=== PATIENT | female | born 1940 | race Caucasian/White ===

== ENCOUNTER 2016-10-20 13:25 | Outpatient (CLI) | payer MEDICARE, OTHER | END 2016-10-20 13:26 | disposition home or self-care (01) | DX: R51 Headache (principal); R42 Dizziness and giddiness; R11.0 Nausea; E11.9 Type 2 diabetes mellitus without complications ==

== ENCOUNTER 2018-06-01 11:18 | Outpatient (CLI) | payer MEDICARE, OTHER ==
--- NOTE | 2018-06-02 11:54 | Mammography Report ---
Reason: SCREENING MAMMO Procedure Date: 06/01/2018 Accession Number: [id number] / [id number] Procedure: ELISSA - Screening Mammo w/Anibal CPT Code: FULL RESULT: EXAM: Screening Mammo w/Anibal DATE: 06/01/2018 11:51 AM CLINICAL HISTORY: Routine screening. Nulliparous patient. TECHNIQUE: Bilateral CC and MLO views were obtained. COMPARISON: 04/26/2016, 08/07/2012, 02/19/2011 and 06/20/2008 FINDINGS: Scattered fibroglandular densities are present. There is no significant interval change. No suspicious masses, clustered microcalcifications, or regions of architectural distortion are identified. Scattered benign calcifications are again noted. IMPRESSION: Benign findings RECOMMENDATION: Routine annual screening unless otherwise clinically indicated. BIRADS CATEGORY 2: Benign findings STANDARD QUALIFYING STATEMENTS: 1. This examination was not reviewed with the aid of Computer-Aided Detection (CAD). 2. A negative or benign imaging report should not delay biopsy if clinically suspicious findings are present. Consider surgical consultation if warrented. More than 5% of cancers are not identified by imaging. 3. Dense breasts may obscure an underlying neoplasm. 4. This examination was reviewed with the aid of 3D breast imaging (tomosynthesis).
== END 2018-06-01 11:19 | disposition home or self-care (01) ==
LOC: DI 11:18
PROVIDERS: ATTEND Internal Medicine
DX: Z12.31 Encounter for screening mammogram for malignant neoplasm of breast (principal)
CPT/HCPCS: 77063; 77067

== ENCOUNTER 2019-08-09 13:16 | Outpatient (CLI) | payer MEDICARE, OTHER ==
--- NOTE | 2019-08-10 11:36 | Mammography Report ---
Reason: ROUTINE MAMMO Procedure Date: 08/09/2019 Accession Number: [id number] / [id number] Procedure: ELISSA - Screening Mammo w/Anibal CPT Code: Final Report FULL RESULT: EXAM: Screening Mammo w/Anibal DATE: 08/09/2019 2:03 PM CLINICAL HISTORY: Screening encounter. TECHNIQUE: (B) - Bilateral CC and MLO views were obtained. COMPARISON: 06/01/2018 through 02/19/2011. PARENCHYMAL PATTERN: (A) - The breast(s) demonstrate(s) scattered fibroglandular densities. FINDINGS: There is an increasing asymmetry best seen on the left CC projection 7.6 cm from the nipple in the medial breast which localizes to the inner lower quadrant on cc 3-D image #9 potentially correlating 2 the left MLO 3-D image 31. Additional spot imaging and potentially ultrasound are recommended for clarification. There are no suspicious masses, calcifications, or areas of distortion in the right breast. IMPRESSION: Incomplete examination. BI-RADS category 0. RECOMMENDATION: (ADDMU) - Additional views using both Mammography and Ultrasound recommended. Left breast lower inner quadrant. BI-RADS CATEGORY: (0) - Incomplete Examination - need additional evaluation. STANDARD QUALIFYING STATEMENTS: 1. This examination was not reviewed with the aid of Computer-Aided Detection (CAD). 2. A negative or benign imaging report should not preclude biopsy if clinically suspicious findings are present. 3. Dense breasts may obscure an underlying neoplasm. 4. This examination was reviewed with the aid of 3D breast imaging (tomosynthesis).
== END 2019-08-09 13:17 | disposition home or self-care (01) ==
LOC: DI 13:16
PROVIDERS: ATTEND Internal Medicine
DX: Z12.31 Encounter for screening mammogram for malignant neoplasm of breast (principal); R92.8 Other abnormal and inconclusive findings on diagnostic imaging of breast
CPT/HCPCS: 77063; 77067

== ENCOUNTER 2019-09-05 08:17 | Outpatient (CLI) | payer MEDICARE, OTHER ==
--- NOTE | 2019-09-05 13:23 | Mammography Report ---
Reason: ABN MAMMO - SPEC VIEWS LT Procedure Date: 09/05/2019 Accession Number: [id number] / [id number] Procedure: ELISSA - Diag Special Views Dig LT CPT Code: Final Report FULL RESULT: EXAM: Diag Special Views Dig LT DATE: 09/05/2019 9:10 AM CLINICAL HISTORY: Diagnostic examination. The patient is recalled from screening for increasing left breast asymmetry. TECHNIQUE: (L) - Left left spot CC, left spot MLO and left LM images are obtained. Focused left breast ultrasound is performed. COMPARISON: 08/09/2019 through 06/20/2008. PARENCHYMAL PATTERN: (A) - The breast(s) demonstrate(s) scattered fibroglandular densities. FINDINGS: The focal asymmetry in question partially dissipates with spot views and 3-D mammographic images demonstrate no convincing underlying mass 7:00 approximately 8 cm from the nipple. Focused left breast ultrasound in the same location demonstrates normal breast tissue with no mass or architectural distortion identified. There are no suspicious masses, calcifications, or areas of distortion. IMPRESSION: Benign findings. BI-RADS category 2. RECOMMENDATION: (ANNUAL) - Recommend routine annual screening mammography. BI-RADS CATEGORY: (2) - Benign Findings. STANDARD QUALIFYING STATEMENTS: 1. This examination was not reviewed with the aid of Computer-Aided Detection (CAD). 2. A negative or benign imaging report should not preclude biopsy if clinically suspicious findings are present. 3. Dense breasts may obscure an underlying neoplasm. 4. This examination was reviewed with the aid of 3D breast imaging (tomosynthesis).
== END 2019-09-05 08:18 | disposition home or self-care (01) ==
LOC: DI 08:17
PROVIDERS: ATTEND Internal Medicine
DX: R92.8 Other abnormal and inconclusive findings on diagnostic imaging of breast (principal); N64.89 Other specified disorders of breast
CPT/HCPCS: 76642

== ENCOUNTER 2021-04-09 08:00 | Outpatient (CLI) | payer MEDICARE, OTHER | END 2021-04-09 23:59 | LOC: LAB.N 08:00 | PROVIDERS: ATTEND Family Medicine | DX: K52.9 Noninfective gastroenteritis and colitis, unspecified (principal); Z20.822 Contact with and (suspected) exposure to COVID-19 ==

== ENCOUNTER 2021-04-10 10:46 | Emergency (ER) | payer MEDICARE, OTHER ==
--- NOTE | 2021-04-10 11:03 | ED Physician Documentation ---
PD HPI CHEST PAIN - Stated complaint Stated Complaint: CHEST PX - History obtained from History obtained from: Patient - History of Present Illness Timing - onset: Enter time (0200), Last night Timing - onset during: Rest Timing - duration: Hours Timing - details: Abrupt onset, Still present Quality: Pressure, Tightness Location: Left chest Radiation: Neck Improved by: Other (peptobismol) Worsened by: No: Exertion, Inspiration, Eating, Movement, Palpation, Position Associated symptoms: No: Shortness of air, Diaphoresis, Nausea, Vomiting, Feeling faint / dizzy, General Weakness, Palpitations, Cough Similar symptoms before: No diagnosis Recently seen: Clinic - Additional information Additional information: 81-year-old female history of pancreatitis has developed chest pain radiating into her neck last night at 2:00 in the morning. She has had similar episodes not as bad over the years. She states this usually happens about 2:00 in the morning and last till about 4:00 in the morning. Last night she was able to take some Pepto-Bismol which help with her symptoms. She does not take medications for her stomach except for pancreatic enzymes. Review of Systems Constitutional: denies: Fever Eyes: denies: Decreased vision Ears: denies: Ear pain Nose: reports: Rhinorrhea / runny nose, Congestion Throat: denies: Sore throat Cardiac: reports: Chest pain / pressure. denies: Palpitations Respiratory: denies: Dyspnea, Cough GI: reports: Abdominal Pain, Nausea. 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 : None HEENT: None Psych: None Musculoskeletal: None Derm: None - Past Surgical History Past Surgical History: Yes General: Cholecystectomy /RAILWAY PATROL OFFICER: Dilation and currettage HEENT: Tonsil/Adenoidectomy - Present Medications Home Medications: Ambulatory Orders Medication Instructions Recorded Confirmed B12/Levomefolate Calcium/B-6 5,000 mg PO AC 03/15/17 12/16/20 [Foltx Tablet] Biotin 10,000 mcg PO AC 03/15/17 12/16/20 Dale/Mg/Zinc 1,500 mg PO AC 03/15/17 12/16/20 Cholecalciferol (Vitamin D3) 1,000 unit PO AC 03/15/17 12/16/20 [Vitamin D3] Folic Acid 800 mcg PO AC 03/15/17 12/16/20 Glucosa Chaudhary 2Kcl/Chondroitin Chaudhary 1,500 mg PO AC 03/15/17 12/16/20 [Glucosamine-Chondroitin Tab] Gtf Chromium 200 mg pe PO AC 03/15/17 12/16/20 Lactobacillus Acidophilus 1 tab ORAL DAILY 03/15/17 12/16/20 [Probiotic Acidophilus] Vernal-3/Dha/Epa/Fish Oil [Vernal 3 1,000 mg PO AC 03/15/17 12/16/20 500 Softgel] Makinen Lecithin 1,200 mg PO AC 03/15/17 12/16/20 Super Bio C Buffered 1,000 mg PO AC 03/15/17 12/16/20 L Glutamine 500 mg ORAL DAILY 03/16/17 12/16/20 Spirulina 1,800 mg PO DAILY 03/16/17 12/16/20 Bioallers 2 drops PO DAILY PRN 12/11/19 12/16/20 Cinnulin 100 mg PO DAILY 12/11/19 12/16/20 Ubidecarenone [Co Q-10] 100 mg PO DAILY 12/11/19 12/16/20 - Allergies Allergies/Adverse Reactions: Allergies Allergy/AdvReac Type Severity Reaction Status Date / Time Iodinated Contrast Media Allergy Severe Diaphoresis Verified 04/10/21 11:11 aspirin AdvReac Intermediate Rash Verified 04/10/21 11:11 codeine AdvReac Intermediate Dizziness Verified 04/10/21 11:11 - Social History Does the pt smoke?: No Smoking Status: Never smoker Does the pt drink ETOH?: Yes Does the pt have substance abuse?: No - Immunizations Immunizations are current?: No - POLST Patient has POLST: Yes PD ED PE NORMAL - Vitals Vital signs reviewed: Yes (hypertensive ) - General General: Alert and oriented X 3, No acute distress, Well developed/nourished - HEENT HEENT: Atraumatic, PERRL, EOMI - Neck Neck: Supple, no meningeal sign, No bony TTP - Cardiac Cardiac: RRR, Other (2/6 holosystolic murmer at LSB harsh, consistent with aortic stenosis) - Respiratory Respiratory: No respiratory distress, Clear bilaterally - Abdomen Abdomen: Normal bowel sounds, Soft, Non tender, Non distended, No organomegaly - Back Back: No CVA TTP, No spinal TTP - Derm Derm: Normal color, Warm and dry, No rash - Extremities Extremities: No deformity, No edema - Neuro Neuro: Alert and oriented X 3, steward/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 ) Computer interpretation: Agree with computer - Labs Labs: Laboratory Tests 04/10/21 04/10/21 04/10/21 11:37 11:37 11:37 WBC 8.9 RBC 4.33 Hgb 13.2 Hct 41.0 MCV 94.7 MCH 30.5 MCHC 32.2 RDW 12.8 Plt Count 227 MPV 10.3 Manual Slide Review Indicated Sodium 138 Potassium 4.2 Chloride 100 L Carbon Dioxide 29 Anion Gap 9.0 BUN 16 Creatinine 0.7 Estimated GFR (MDRD) 80 L Glucose 153 H Calcium 9.6 Total Bilirubin 0.7 AST 20 ALT 21 Alkaline Phosphatase 47 Troponin I High Sens 4.6 Total Protein 7.5 Albumin 3.8 Globulin 3.7 Albumin/Globulin Ratio 1.0 Lipase 32 - Rads (name of study) chest Radiology: Prelim report reviewed (Impression: No acute cardiopulmonary disease process.), EMP read indepedently, See rad report Procedures - IVC sono (time) 1120 Bedside IVC sono: IVC measures (cm) (0.91), Dehydration (est 1-2 liter deficit) PD MEDICAL DECISION MAKING - ED course Complexity details: reviewed old records, reviewed results, re-evaluated pat ient, considered differential, d/w patient ED course: 81-year-old female with a prior history of pancreatitis is having episodes, early in the morning, of abdominal pain, nausea and last night, chest pain as well. I suspect the patient has GERD and some difficulty with nighttime digestion. Today her lipase is normal and electrocardiogram and troponin are without evidence of ischemia. I do not think this patient has any component of acute coronary syndrome. Departure - Departure Disposition: 01 Home, Self Care Clinical Impression: Dehydration, Atypical chest pain GERD (gastroesophageal reflux disease) Qualifiers: Esophagitis presence: esophagitis presence not specified Qualified Code(s): K21.9 - Gastro-esophageal reflux disease without esophagitis Condition: Stable Instructions: ED Dehydration, ED GERD Follow-Up: Portia Villagran MD [Primary Care Provider] - Comments: Rivera, today in the emergency department studies of your heart were without evidence of heart attack. Your symptoms are consistent with reflux disease and the recommendation is to reduce night time eating before bed and take a medication to reduce the acid in your stomach such as Pepcid A/C or nexium. Your symptoms should khushbu as soon as you start taking one of these medications. On exam today you have a heart murmer consistent with aortic stenosis and this will require a follow up ultrasound of your heart (an echocardiogram).
[2021-04-10] MEDS ORDERED: SODIUM CHLORIDE 0.9% 1,000 ML IV STA (11:44)
[2021-04-10 11:48] LABS: BASOPHILS % (AUTO) 0.2 %; EOSINOPHILS # (AUTO) 0.1 10^3/uL (0.0-0.7); EOSINOPHILS % (AUTO) 1.1 %; HGB - HEMOGLOBIN 13.2 g/dL (12.0-16.0); LYMPHOCYTES # (AUTO) 6.1 10^3/uL (1.5-3.5); LYMPHOCYTES % (AUTO) 68.4 %; MEAN CORPUSCULAR HEMOGLOBIN 30.5 pg (27.0-31.0); MEAN CORPUSCULAR HGB CONC 32.2 g/dL (32.0-36.0); MEAN CORPUSCULAR VOLUME 94.7 fL (81.0-99.0); MEAN PLATELET VOLUME 10.3 fL (7.9-10.8); MONOCYTES # (AUTO) 0.6 10^3/uL (0.0-1.0); MONOCYTES % (AUTO) 7.1 %; NEUTROPHILS % (AUTO) 23.1 %; PLT - PLATELET COUNT 227 10^3/uL (130-450); RED BLOOD COUNT 4.33 10^6/uL (4.20-5.40); RED CELL DISTRIBUTION WIDTH 12.8 % (12.0-15.0); WHITE BLOOD COUNT 8.9 x10^3/uL (4.8-10.8)
--- NOTE | 2021-04-10 11:50 | XRAY Report ---
PROCEDURE: Chest 1 View X-Ray INDICATIONS: Chest pain TECHNIQUE: One view of the chest was acquired. COMPARISON: 02/05/2015 FINDINGS: Surgical changes and devices: None. Lungs and pleura: No pleural effusions or pneumothorax. Lungs are clear. Mediastinum: Mediastinal contours appear normal. Heart size is normal. Bones and chest wall: No suspicious bony lesions. Overlying soft tissues appear unremarkable. IMPRESSION: No acute cardiopulmonary disease process. Reviewed by: Lucy Gibson MD, PhD on 04/10/2021 11:48 AM PDT Approved by: Lucy Gibson MD, PhD on 04/10/2021 11:48 AM PDT Station ID: [id number]
[2021-04-10 11:53] LABS: SLIDE REVIEW? Indicated
[2021-04-10 12:04] LABS: ALBUMIN 3.8 g/dL (3.2-5.5); BILIRUBIN,TOTAL 0.7 mg/dL (0.2-1.0); CALCIUM 9.6 mg/dL (8.5-10.3); CREATININE 0.7 mg/dL (0.4-1.0); POTASSIUM 4.2 mmol/L (3.5-5.0); TOTAL PROTEIN 7.5 g/dL (6.7-8.2)
[2021-04-10 12:51] LABS: DIFFERENTIAL COMMENT MANUAL=AUTO DIFF; PLATELET ESTIMATE, MANUAL NORMAL (130-450,000) (NORMAL); PLATELET MORPHOLOGY NORMAL APPEARANCE (NORMAL); RBC MORPHOLOGY (MULTIPLE) NORMAL APPEARANCE (NORMAL); WBC MORPHOLOGY (MULTIPLE) NORMAL APPEARANCE (NORMAL)
[2021-04-10 13:13] VITALS: BP 141/71
== END 2021-04-10 13:18 | disposition home or self-care (01) ==
LOC: ED 10:46
DX: E86.0 Dehydration (principal); K21.9 Gastro-esophageal reflux disease without esophagitis
CPT/HCPCS: 36415; 80053; 83690; 84484; 85025; 93005; 96360; 99284

== ENCOUNTER 2021-05-08 10:12 | Outpatient (CLI) | payer MEDICARE, OTHER | END 2021-05-08 10:13 | disposition home or self-care (01) | LOC: DI 10:12 | PROVIDERS: ATTEND Internal Medicine | DX: R01.1 Cardiac murmur, unspecified (principal); I51.7 Cardiomegaly | CPT/HCPCS: 93306 ==

== ENCOUNTER 2021-09-22 16:24 | Outpatient (CLI) | payer MEDICARE, OTHER ==
[2021-09-22 16:44] LABS: CALCIUM 9.2 mg/dL (8.5-10.3); CREATININE 0.5 mg/dL (0.4-1.0); POTASSIUM 3.8 mmol/L (3.5-5.0)
[2021-09-22 20:58] LABS: ESTIMATED AVERAGE GLUCOSE 163 mg/dL (70-100); HEMOGLOBIN A1c% 7.3 % (4.27-6.07)
== END 2021-09-22 16:25 | disposition home or self-care (01) ==
LOC: LAB.R 16:24
PROVIDERS: ATTEND Internal Medicine
DX: E11.9 Type 2 diabetes mellitus without complications (principal); D03.30 Melanoma in situ of unspecified part of face
CPT/HCPCS: 80048; 83036

== ENCOUNTER 2022-02-11 11:52 | Outpatient (CLI) | payer MEDICARE, OTHER | END 2022-02-11 11:53 | disposition home or self-care (01) | LOC: LAB.N 11:52 | PROVIDERS: ATTEND Internal Medicine | DX: J01.90 Acute sinusitis, unspecified (principal); Z20.822 Contact with and (suspected) exposure to COVID-19 ==

== ENCOUNTER 2022-05-03 16:57 | Outpatient (CLI) | payer MEDICARE, OTHER ==
--- NOTE | 2022-05-04 13:21 | XRAY Report ---
PROCEDURE: Shoulder 3 View RT INDICATIONS: RIGHT SHOULDER INJURY TECHNIQUE: 3 views of the shoulder were acquired. COMPARISON: None. FINDINGS: Bones: No fractures or dislocations. No suspicious bony lesions. Visualized ribs appear intact. G eneralized decreased osseous mineralization present. Soft tissues: No suspicious soft tissue calcifications. IMPRESSION: Osteopenia without fracture or dislocation Reviewed by: Kevin Chacon MD on 05/04/2022 12:19 PM [email or web address] Approved by: Kevin Chacon MD on 05/04/2022 12:19 PM AKDT Station ID: [id number]
== END 2022-05-03 16:58 | disposition home or self-care (01) ==
LOC: DI 16:57
PROVIDERS: ATTEND Internal Medicine
DX: S49.91XA Unspecified injury of right shoulder and upper arm, initial encounter (principal); M85.811 Other specified disorders of bone density and structure, right shoulder

== ENCOUNTER 2022-06-12 09:36 | Outpatient (CLI) | payer MEDICARE, OTHER ==
--- NOTE | 2022-06-14 09:43 | CT Report ---
PROCEDURE: UPPER EXTREMITY WO - RT INDICATIONS: SHOULDER PAIN TECHNIQUE: Noncontrast 2 mm axial sections were acquired through the elbow joint, with coronal and sagittal refo rmats. For radiation dose reduction, the following was used: automated exposure control, adjustment of mA and/or kV according to patient size. COMPARISON: Right shoulder radiograph dated 05/03/2020 to. FINDINGS: Image quality: Excellent. Bones: Moderate to severe glenohumeral joint osteoarthritic changes are seen with joint space narrow ing, subchondral sclerosis and cyst formation. Inferior marginal osteophyte formation is also noted. There is also moderate acromioclavicular joint osteoarthritis with joint space narrowing, subchondral sclerosis and inferior marginal osteophyte formation. No acute fracture or dislocation. No suspiciou s bony lesions. Visualized right upper ribs are intact. Soft tissues: There is no gross full-thickness rotator cuff tendon rupture. No significant rotator c uff muscle atrophy is seen on sagittal views. There is moderate amount of subcoracoid bursal fluid wi th suggestion of small subcoracoid bursal loose bodies measuring 4 to 5 mm in size. No significant gl enohumeral joint effusion or subacromial subdeltoid bursal fluid is seen. No other area of loose bodi es or abnormal soft tissue calcifications. Visualized right lung field is clear. No gross axillary ly mphadenopathy by size criteria. IMPRESSION: 1. Moderate to severe glenohumeral joint osteoarthritis and moderate acromioclavicular joint osteoart hritis. No fracture or dislocation. No suspicious intraosseous lesion. 2. No gross full-thickness rotator cuff tendon rupture. No significant muscle atrophy is. No signific ant joint effusion or subacromial subdeltoid bursal fluid. 3. Moderate amount of subcoracoid bursal fluid with suggestion of subcentimeter loose bodies within s ubcoracoid bursa. Reviewed by: Jimi Stanley MD on 06/14/2022 9:42 AM PST Approved by: Jimi Stanley MD on 06/14/2022 9:42 AM PST Station ID: [id number]
== END 2022-06-12 09:37 | disposition home or self-care (01) ==
LOC: DI 09:36
PROVIDERS: ATTEND Internal Medicine
DX: M19.011 Primary osteoarthritis, right shoulder (principal)

== ENCOUNTER 2022-07-20 07:40 | Outpatient (CLI) | payer MEDICARE, OTHER ==
--- NOTE | 2022-07-20 14:29 | MRI Report ---
PROCEDURE: SHOULDER WO - RT INDICATIONS: SHOULDER PAIN TECHNIQUE: Noncontrast oblique coronal T2 fast spin echo with fat saturation, oblique sagittal T1 spin echo and T2 fast spin echo with fat saturation, axial T1 spin echo and T2 fast spin echo with fat saturation t hrough the shoulder. COMPARISON: None. FINDINGS: Image quality: Excellent. Rotator cuff: There is full-thickness rupture of distal supraspinatus at its insertion on humeral hea d with up to 3.3 cm medial retraction of torn tendon fibers to the level of acromioclavicular joint. Moderate grade articular surface partial-thickness tear involving distal infraspinatus at its inserti on on humeral head is seen extending to muscular tendinous junction. Distal subscapularis tendinosis and low to moderate grade intrasubstance partial thickness tear is seen. Mild to moderate supraspinat us muscle atrophy is seen on sagittal images. Bones and bursae: No bone marrow contusions or fractures. Nonspecific subcortical cystic area involv ing greater tuberosity of humeral head near rotator cuff tendon insertion is seen and measures 1.2 cm in size. Moderate acromioclavicular joint and glenohumeral joint osteoarthritic changes are noted. T here is large amount of joint fluid and subacromial subdeltoid bursal fluid. No gross intra-articular loose body is seen. Capsule and soft tissues: The glenohumeral ligaments are grossly intact. Signal abnormality and conto ur irregularity involving superior anterior labrum at 12 to 2:00 position is seen suggestive of super ior anterior labral tear. The long head of the biceps tendon appears thickened with intrasubstance T2 hyperintense signal. The rotator interval appears normal, without fibrosis. The coracohumeral liga ment is normal in thickness. IMPRESSION: 1. Full-thickness rupture involving distal supraspinatus at its insertion on humeral head with up to 3.3 cm medial retraction of torn tendon fibers to the level of the AC joint. Moderate grade articular surface partial-thickness involving distal infraspinatus extending to muscular tendinous junction. L ow to moderate grade intrasubstance partial thickness involving distal subscapularis. Mild to moderat e supraspinatus muscle atrophy. 2. Moderate acromioclavicular joint and glenohumeral joint osteoarthritis. No fracture or dislocation . Large joint effusion and subacromial subdeltoid bursal fluid. No gross loose bodies. 3. Suggestion of superior anterior labral tear at 12 to 2:00 position. 4. Tendinosis and low-grade intrasubstance partial thickness tear involving proximal intra-articular portion of long head of biceps. Reviewed by: Jimi Stanley MD on 07/20/2022 2:28 PM PST Approved by: Jimi Stanley MD on 07/20/2022 2:28 PM PST Station ID: [id number]
== END 2022-07-20 07:41 | disposition home or self-care (01) ==
LOC: DI 07:40
PROVIDERS: ATTEND Internal Medicine
DX: S46.011A Strain of muscle(s) and tendon(s) of the rotator cuff of right shoulder, initial encounter (principal); M19.011 Primary osteoarthritis, right shoulder; M25.411 Effusion, right shoulder; S46.111A Strain of muscle, fascia and tendon of long head of biceps, right arm, initial encounter

== ENCOUNTER 2022-10-11 11:19 | Outpatient (CLI) | payer MEDICARE, OTHER ==
[2022-10-11 11:45] LABS: ALBUMIN 3.9 g/dL (3.2-5.5); ALBUMIN/GLOBULIN RATIO 1.1 (1.0-2.2); BILIRUBIN,TOTAL 0.7 mg/dL (0.2-1.0); CALCIUM 9.9 mg/dL (8.5-10.3); CREATININE 0.5 mg/dL (0.4-1.0); POTASSIUM 4.5 mmol/L (3.5-5.0); TOTAL PROTEIN 7.5 g/dL (6.7-8.2)
== END 2022-10-11 11:20 | disposition home or self-care (01) ==
LOC: LAB 11:19
DX: C50.312 Malignant neoplasm of lower-inner quadrant of left female breast (principal)
CPT/HCPCS: 36415; 80053

== ENCOUNTER 2022-10-11 11:33 | Outpatient (CLI) | payer MEDICARE, OTHER ==
--- NOTE | 2022-10-11 16:12 | XRAY Report ---
PROCEDURE: Hip w/Pelvis 2-3V RT INDICATIONS: HIP PX TECHNIQUE: AP pelvis with lateral view(s) of the right hip(s). COMPARISON: None. FINDINGS: Bones: No fractures or dislocations. Pelvic ring appears intact. No suspicious bony lesions. Mild bilateral hip joint space narrowing and periarticular osteophyte formation. Soft tissues: The visualized bowel gas pattern is normal. No suspicious soft tissue calcifications. IMPRESSION: Osteoarthritis. No acute fracture. No osseous lesion. If symptoms and/or clinical suspic ion for pathology continue, further assessment with repeat plain films, or advanced imaging (e.g., CT , MRI, or bone scan) is recommended for further assessment. Reviewed by: Chaparrita Maddox MD on 10/11/2022 4:10 PM PST Approved by: Chaparrita Maddox MD on 10/11/2022 4:10 PM PST Station ID: [id number]
== END 2022-10-11 11:34 | disposition home or self-care (01) ==
LOC: DI 11:33
PROVIDERS: ATTEND Internal Medicine
DX: M16.11 Unilateral primary osteoarthritis, right hip (principal); C50.312 Malignant neoplasm of lower-inner quadrant of left female breast
CPT/HCPCS: 36415; 80053

== ENCOUNTER 2023-01-24 17:06 | Outpatient (CLI) | payer MEDICARE, OTHER ==
--- NOTE | 2023-01-24 18:27 | Ultrasound Report ---
PROCEDURE: Duplex Ext Veins Left INDICATIONS: PAIN IN LEFT KNEE TECHNIQUE: Real-time imaging, as well as color and pulse Doppler interrogation, were performed of the lower extr emity deep veins from the inguinal ligament to the popliteal fossa. COMPARISON: None. FINDINGS: The deep veins are normally compressible, and free of intraluminal thrombus. Color and pu lse Doppler demonstrate normal phasic intraluminal flow. There is normal augmentation response to di stal compression maneuver. There is a Welch's cyst measures 3.6 x 1.9 x 3.2 cm in size. IMPRESSION: 1. No evidence of DVT in visualized left lower extremity veins. 2. Welch's cyst as above. Reviewed by: Jimi Stanley MD on 01/24/2023 6:26 PM PDT Approved by: Jimi Stanley MD on 01/24/2023 6:26 PM PDT Station ID: [id number]
== END 2023-01-24 17:07 | disposition home or self-care (01) ==
LOC: DI 17:06
PROVIDERS: ATTEND Internal Medicine
DX: M71.22 Synovial cyst of popliteal space [Baker], left knee (principal)

== ENCOUNTER 2023-08-31 14:15 | Outpatient (CLI) | payer MEDICARE, OTHER ==
[2023-08-31 17:47] LABS: BASOPHILS % (AUTO) 0.2 %; EOSINOPHILS # (AUTO) 0.2 10^3/uL (0.0-0.7); EOSINOPHILS % (AUTO) 1.6 %; HCT - HEMATOCRIT 38.6 % (37.0-47.0); HGB - HEMOGLOBIN 12.2 g/dL (12.0-16.0); LYMPHOCYTES # (AUTO) 7.3 10^3/uL (1.5-3.5); LYMPHOCYTES % (AUTO) 57.4 %; MEAN CORPUSCULAR HEMOGLOBIN 30.1 pg (27.0-31.0); MEAN CORPUSCULAR HGB CONC 31.6 g/dL (32.0-36.0); MEAN CORPUSCULAR VOLUME 95.3 fL (81.0-99.0); MEAN PLATELET VOLUME 10.9 fL (7.9-10.8); MONOCYTES # (AUTO) 0.9 10^3/uL (0.0-1.0); MONOCYTES % (AUTO) 6.8 %; NEUTROPHILS # (AUTO) 4.3 10^3/uL (1.5-6.6); NEUTROPHILS % (AUTO) 33.7 %; PLT - PLATELET COUNT 352 10^3/uL (130-450); RED BLOOD COUNT 4.05 10^6/uL (4.20-5.40); WHITE BLOOD COUNT 12.8 x10^3/uL (4.8-10.8)
[2023-08-31 17:59] LABS: ALBUMIN 3.8 g/dL (3.2-5.5); BILIRUBIN,TOTAL 0.4 mg/dL (0.2-1.0); CALCIUM 9.2 mg/dL (8.5-10.3); CREATININE 0.7 mg/dL (0.6-1.3); TOTAL PROTEIN 7.8 g/dL (6.4-8.9)
[2023-08-31 18:13] LABS: SLIDE REVIEW? Indicated
[2023-08-31 18:40] LABS: DIFFERENTIAL COMMENT MANUAL=AUTO DIFF; PLATELET ESTIMATE, MANUAL NORMAL (130-450,000) (NORMAL); PLATELET MORPHOLOGY 1+ LARGE PLATELETS (NORMAL); RBC MORPHOLOGY (MULTIPLE) NORMAL APPEARANCE (NORMAL)
[2023-08-31 21:26] LABS: BILIRUBIN,URINE NEGATIVE (NEGATIVE); GLUCOSE, URINE (UA) NEGATIVE (NEGATIVE); KETONES,URINE (UA) NEGATIVE (NEGATIVE); LEUKOCYTE ESTERASE, URINE NEGATIVE (NEGATIVE); NITRITE,URINE NEGATIVE (NEGATIVE); OCCULT BLOOD,URINE NEGATIVE (NEGATIVE); PROTEIN,URINE NEGATIVE (NEGATIVE); UROBILINOGEN,URINE 0.2 (NORMAL) E.U./dL (NORMAL)
[2023-08-31 21:52] LABS: BACTERIA,URINE Many /HPF (None Seen); CLARITY,URINE CLEAR (CLEAR); RBC,URINE None Seen /HPF (0-5); SQUAMOUS EPITHELIAL CELL,UR MANY Squamous (<= Few); WBC,URINE 0-3 /HPF (0-5)
== END 2023-08-31 14:30 | disposition home or self-care (01) ==
LOC: LAB.N 14:15
PROVIDERS: ATTEND Family Medicine
DX: R10.9 Unspecified abdominal pain (principal)
CPT/HCPCS: 36415; 80053; 81001; 83690; 85025; 87086

== ENCOUNTER 2023-09-01 16:08 | Outpatient (CLI) | payer MEDICARE, OTHER ==
[2023-09-01] MEDS ORDERED: iohexoL-300 100 ML VIAL ONE (16:22)
[2023-09-01] MEDS ORDERED: DIATRIZOATE MEGLU/DIATRIZO SOD 30 ML BOTTLE PO ONE ×2 (16:22→16:38)
--- NOTE | 2023-09-01 17:42 | CT Report ---
PROCEDURE: Abdomen/Pelvis WO INDICATIONS: ABD PAIN TECHNIQUE: A CT scan of the abdomen and pelvis was performed without the use of intravenous contrast. Images we re recorded and evaluated at appropriate window settings. Reformats: coronal and sagittal. For radiat ion dose reduction, the following was used: automated exposure control, adjustment of mA and/or kV ac cording to patient size. COMPARISON: None. FINDINGS: Image quality: Excellent. Lung bases and heart: Unremarkable. Liver: No contour-deforming mass. Gallbladder and biliary tree: Surgically absent. No biliary dilation, accounting for post-cholecystec anna state. Spleen: No splenomegaly. Pancreas: No pancreatic ductal dilation. Adrenals: No adrenal nodule. Kidneys and ureters: No hydronephrosis. No renal cystic lesion which requires follow up. No solid mas s. Bowel and peritoneum: No bowel distension. No pathologic free fluid. Acute diverticulitis of the sigm oid colon, with wall thickening, inflamed diverticulum and pericolonic fat stranding. No evidence per foration. Normal appendix. Lymph nodes: No central or retroperitoneal adenopathy. Vessels: No infrarenal aortic aneurysm. PELVIS Reproductive organs: Unremarkable. Bladder: No wall thickness, accounting for underdistention. Pelvic lymph nodes: No pelvic adenopathy by size criteria. Bones: No aggressive osseous abnormality. Convex left curvature of the lumbar spine. Degenerative dis c disease and degenerative changes of the hips. Other: No significant ventral or inguinal hernia. IMPRESSION: Sigmoid colonic diverticulitis without perforation or abscess. Reviewed by: Dionicio Alarcon MD on 09/01/2023 5:41 PM PST Approved by: Dionicio Alarcon MD on 09/01/2023 5:41 PM PST Station ID: [id number]
== END 2023-09-01 16:09 | disposition home or self-care (01) ==
LOC: DI 16:08
PROVIDERS: ATTEND Family Medicine
DX: K57.32 Diverticulitis of large intestine without perforation or abscess without bleeding (principal)
CPT/HCPCS: 36415; 74176; 80053; 81001; 83690; 85025; Q9963; 87086

== ENCOUNTER 2023-12-04 09:07 | Outpatient (CLI) | payer MEDICARE, OTHER ==
--- NOTE | 2023-12-05 17:46 | Ultrasound Report ---
PROCEDURE: Renal (Retroperitoneal) INDICATIONS: HEMATURIA TECHNIQUE: Real-time scanning was performed of the retroperitoneal organs, with image documentation. COMPARISON: CT of abdomen and pelvis dated 09/01/2023. FINDINGS: Kidneys: Kidneys are normal in size. Right kidney measures 9.8 cm long; left kidney measures 10.5 c m long. Right renal cortical thickness is 0.8 cm; left renal cortical thickness is 0.8 cm. Multiple hyperechoic foci are seen scattered in lateral cortex of mid to lower pole right kidney measures up to 6 x 4 x 6 mm in size. Multiple echogenic foci also noted in mid pole of left kidney measures up to 4 x 3 x 3 mm in size. There is mild prominence of left renal pelvis measures up to 7 mm in diameter. Bladder: Pre-void bladder volume is 91.3 mL. Post-void residual is 53.4 mL. Pre-void images demons trate no intraluminal masses or stones. On pre-void images, bilateral ureteral jets are noted with c olor Doppler interrogation. (Of note, ureteral jets may not be detectable in up to 25% of cases due to insufficient differences in specific gravity between ureteral and bladder urine). Miscellaneous: No free abdominal fluid. IMPRESSION: 1. Suggestion of bilateral nonobstructing renal calculi as described above. No right-sided hydronephr osis. Questionable prominence of left renal pelvis which may represent peripelvic cyst versus mild hy dronephrosis. No solid-appearing renal lesion. 2. Normal-appearing urinary bladder with small to moderate amount of postvoid residual. Reviewed by: Jimi Stanley MD on 12/05/2023 5:44 PM PDT Approved by: Jimi Stanley MD on 12/05/2023 5:44 PM PDT Station ID: [id number]
== END 2023-12-04 09:08 | disposition home or self-care (01) ==
LOC: DI 09:07
PROVIDERS: ATTEND Internal Medicine
DX: R31.9 Hematuria, unspecified (principal)